=== PATIENT | female | born 1940 | race Hispanic/Latino ===

== ENCOUNTER 2017-12-28 19:01 | Emergency (ER) | payer OTHER ==
--- NOTE | 2017-12-28 21:13 | RAD REPORT ---
EXAM DESCRIPTION: RAD - Tib Fib Right - 12/28/2017 8:58 pm CLINICAL HISTORY: Left leg swelling. COMPARISON: None. FINDINGS: No fracture, dislocation or aggressive marrow lesion. Edematous changes are present throug hout the soft tissues of the leg.
[2017-12-28 21:24] LABS: Basophils % 1.3 % (0-1.3); Eosinophils % 9.1 % (0-4.4); Hematocrit 40.9 % (36.0-45.0); Lymphocytes % 37.9 % (15.3-44.8); MCH 29.1 pg (27.0-35.0); MCV 87.7 fL (80-100); Monocytes % 9.2 % (3.3-12.3); RBC Red Blood Cell Count 4.67 M/uL (3.86-4.86)
[2017-12-28 21:25] LABS: Absolute Lymphocytes (CBC) 3.4 K/uL (0.7-4.9); Absolute Monocytes 0.8 K/uL (0.1-1.3); Absolute Neutrophil 3.8 K/uL (1.8-8.0)
[2017-12-28 21:32] LABS: Potassium 4.6 mEq/L (3.6-5.0)
[2017-12-28 21:34] LABS: Albumin 4.7 g/dL (3.2-5.5); Bilirubin Total 0.4 mg/dL (0.3-1.2)
--- NOTE | 2017-12-28 21:36 | RAD REPORT ---
EXAM DESCRIPTION: VAS - Extremity Venous Uni Ltd - 12/28/2017 9:28 pm CLINICAL HISTORY: Leg swelling and edema. COMPARISON: None. FINDINGS: Right lower extremity venous system was interrogated with Doppler technique. Normal flow, compressibility and augmentation was noted. There is no DVT present. IMPRESSION: No evidence of right lower extremity deep venous thrombosis.
--- NOTE | 2017-12-28 21:44 | EDPHYS ---
Physician Documentation [facility] Name: Patricia Calhoun Age: 77 yrs Sex: Female : 1940 Arrival Date: 12/28/2017 Time: 19:02 Bed 2 Private MD: ED Physician Fermin Matthew HPI: 12/28 20:44 This 77 yrs old Female presents to ER via Ambulatory with complaints of Leg carmine Swelling. 20:44 The patient presents with decreased range of motion, pain. The complaints affect the carmine lateral aspect of right calf, right ankle, right calf, right Achilles, medial aspect of right calf, right flores and anterior aspect of right ankle. Context: Problem is a result from a previous injury: No. Onset: The symptoms/episode began/occurred 2 day(s) ago. Modifying factors: The symptoms are alleviated by remaining still. Associated signs and symptoms: The patient has no apparent associated signs or symptoms. Severity of symptoms: At their worst the symptoms were mild, moderate, in the emergency department the symptoms are unchanged. Historical: - Allergies: 21:57 PENICILLINS; tl2 - PMHx: 19:34 Diabetes - IDDM; High Cholesterol; Hypertension; Hypothyroidism; lk1 - PSHx: 19:34 None; lk1 - Immunization history:: Adult Immunizations up to date. - Social history:: Smoking status: Patient/guardian denies using tobacco. - Family history:: not pertinent. ROS: 20:44 Constitutional: Negative for fever, chills, and weight loss, Eyes: Negative for injury, carmine pain, redness, and discharge, ENT: Negative for injury, pain, and discharge, Neck: Negative for injury, pain, and swelling, Cardiovascular: Negative for chest pain, palpitations, and edema, Respiratory: Negative for shortness of breath, cough, wheezing, and pleuritic chest pain, Abdomen/GI: Negative for abdominal pain, nausea, vomiting, diarrhea, and constipation, Back: Negative for injury and pain, : Negative for injury, bleeding, discharge, and swelling, Skin: Negative for injury, rash, and discoloration, Neuro: Negative for headache, weakness, numbness, tingling, and seizure, Psych: Negative for depression, anxiety, suicide ideation, homicidal ideation, and hallucinations, Allergy/Immunology: Negative for hives, rash, and allergies, Endocrine: Negative for neck swelling, polydipsia, polyuria, polyphagia, and marked weight changes, Hematologic/Lymphatic: Negative for swollen nodes, abnormal bleeding, and unusual bruising. 20:44 MS/extremity: Positive for decreased range of motion, pain, swelling, of the right leg. Exam: 20:44 Constitutional: This is a well developed, well nourished patient who is awake, alert, carmine and in no acute distress. Head/Face: Normocephalic, atraumatic. Eyes: Pupils equal round and reactive to light, extra-ocular motions intact. Lids and lashes normal. Conjunctiva and sclera are non-icteric and not injected. Cornea within normal limits. Periorbital areas with no swelling, redness, or edema. ENT: Nares patent. No nasal discharge, no septal abnormalities noted. Tympanic membranes are normal and external auditory canals are clear. Oropharynx with no redness, swelling, or masses, exudates, or evidence of obstruction, uvula midline. Mucous membranes moist. Neck: Trachea midline, no thyromegaly or masses palpated, and no cervical lymphadenopathy. Supple, full range of motion without nuchal rigidity, or vertebral point tenderness. No Meningismus. Chest/axilla: Normal chest wall appearance and motion. Nontender with no deformity. No lesions are appreciated. Cardiovascular: Regular rate and rhythm with a normal S1 and S2. No gallops, murmurs, or rubs. Normal PMI, no JVD. No pulse deficits. Respiratory: Lungs have equal breath sounds bilaterally, clear to auscultation and percussion. No rales, rhonchi or wheezes noted. No increased work of breathing, no retractions or nasal flaring. Abdomen/GI: Soft, non-tender, with normal bowel sounds. No distension or tympany. No guarding or rebound. No evidence of tenderness throughout. Back: No spinal tenderness. No costovertebral tenderness. Full range of motion. Female : Normal external genitalia. Skin: Warm, dry with normal turgor. Normal color with no rashes, no lesions, and no evidence of cellulitis. Neuro: Awake and alert, GCS 15, oriented to person, place, time, and situation. Cranial nerves II-XII grossly intact. Motor strength 5/5 in all extremities. Sensory grossly intact. Cerebellar exam normal. Normal gait. Psych: Awake, alert, with orientation to person, place and time. Behavior, mood, and affect are within normal limits. 20:44 Musculoskeletal/extremity: ROM: full active range of motion, full passive range of motion, Circulation is intact in all extremities. Sensation intact. Compartment Syndrome exam of affected extremity: is normal. DVT Exam: no pain, no tenderness, negative Homans' sign noted on exam, no appreciated bluish discoloration, no erythema, no increased warmth, swelling. 21:41 Neck: ROM/movement: is normal, no acute changes, Meningeal signs: are not present, carmine Kernig's sign is negative, Brudzinski's sign is negative. Vital Signs: 19:35 BP 143 / 66; Pulse 69; Resp 16; Temp 98.0(TE); Pulse Ox 97% on R/A; Weight 91.17 kg lk1 (R); Height 5 ft. 1 in. (154.94 cm) (R); Pain 4/10; 21:37 BP 130 / 50; Pulse 68; Resp 17; Pulse Ox 99% ; tl1 19:35 Body Mass Index 37.98 (91.17 kg, 154.94 cm) lk1 MDM: 20:13 Patient medically screened. [facility] 20:49 Data reviewed: vital signs, nurses notes, radiologic studies, ultrasound. [facility] 12/28 20:43 Order name: CBC with Diff; Complete Time: 21:40 [facility] 12/28 20:43 Order name: Comprehensive Metabolic Panel; Complete Time: 21:40 [facility] 12/28 20:43 Order name: US Extremity Venous Unilateral Ltd; Complete Time: 21:40 [facility] 12/28 20:43 Order name: Tib Fib Right XRAY; Complete Time: 21:40 [facility] 12/28 20:43 Order name: PT-INR [facility] 12/28 20:43 Order name: Ptt, Activated [facility] 12/28 20:43 Order name: IV Saline Lock; Complete Time: 21:25 [facility] Administered Medications: No medications were administered Disposition: 12/28/17 21:43 Discharged to Home. Impression: Edema, unspecified, Pain in right lower leg, Unspecified kidney failure. - Condition is Stable. - Discharge Instructions: Type 1 Diabetes Mellitus, Adult, Edema, Musculoskeletal Pain, Edema, [id number], Kidney Failure, Ajpz-ma-Yily. - Prescriptions for Tylenol- Codeine #3 300-30 mg Oral Tablet - take 1 tablet by ORAL route every 4 hours As needed; 24 tablet. - Medication Reconciliation Form, Thank You Letter, Antibiotic Education, Prescription Opioid Use form. - Follow up: Private Physician; When: 2 - 3 days; Reason: Recheck today's complaints, Continuance of care, Re-evaluation by your physician. Follow up: Padma Talamantes MD; When: 2 - 3 days; Reason: Recheck today's complaints, Re-evaluation by your physician. - Problem is new. - Symptoms have improved. Signatures: Dispatcher [employer] EDMS Fermin Matthew MD MD cha Kluge, Leah RN RN lk1 Huyen Omalley RN RN tl2 Corrections: (The following items were deleted from the chart) 21:57 19:34 Allergies: PENICILLINS; lk1 tl2 21:58 21:43 12/28/2017 21:43 Discharged to Home. Impression: Edema, unspecified; Pain in tl2 right lower leg; Unspecified kidney failure. Condition is Stable. Discharge Instructions: Edema, Musculoskeletal Pain, Edema, Pika-ph-Klef. Prescriptions for Tylenol-Codeine #3 300-30 mg Oral Tablet - take 1 tablet by ORAL route every 4 hours As needed; 24 tablet. and Forms are Medication Reconciliation Form, Thank You Letter, Antibiotic Education, Prescription Opioid Use. Follow up: Private Physician; When: 2 - 3 days; Reason: Recheck today's complaints, Continuance of care, Re-evaluation by your physician. Follow up: Padma Talamantes; When: 2 - 3 days; Reason: Recheck today's complaints, Re-evaluation by your physician. Problem is new. Symptoms have improved. carmine
--- NOTE | 2017-12-28 21:44 | ER ---
Nurse's Notes [facility] Name: Patricia Calhoun Age: 77 yrs Sex: Female : 1940 Arrival Date: 12/28/2017 Time: 19:02 Bed 2 Private MD: Diagnosis: Edema, unspecified;Pain in right lower leg;Unspecified kidney failure Presentation: 12/28 19:33 Presenting complaint: Child states: "Her legs have been swelling since the beginning of lk1 this week.". Transition of care: patient was not received from another setting of care. Onset of symptoms was December 24, 2017. Initial Sepsis Screen: Does the patient meet any 2 criteria? No. Patient's initial sepsis screen is negative. Does the patient have a suspected source of infection? No. Patient's initial sepsis screen is negative. Care prior to arrival: None. 19:33 Method Of Arrival: Ambulatory lk1 19:33 Acuity: ONEAL 3 lk1 Triage Assessment: 19:34 General: Appears in no apparent distress. Behavior is calm, cooperative, appropriate lk1 for age. Pain: Complains of pain in lateral aspect of right calf, posterior aspect of right knee and right calf Pain currently is 4 out of 10 on a pain scale. Historical: - Allergies: 21:57 PENICILLINS; tl2 - PMHx: 19:34 Diabetes - IDDM; High Cholesterol; Hypertension; Hypothyroidism; lk1 - PSHx: 19:34 None; lk1 - Immunization history:: Adult Immunizations up to date. - Social history:: Smoking status: Patient/guardian denies using tobacco. - Family history:: not pertinent. Screenin:30 Abuse screen: Denies threats or abuse. Denies injuries from another. Nutritional tl1 screening: No deficits noted. Tuberculosis screening: No symptoms or risk factors identified. Fall Risk IV access (20 points). Assessment: 21:31 General: Appears in no apparent distress. Behavior is calm, cooperative, appropriate tl1 for age. Pain: Complains of pain in right calf Pain currently is 4 out of 10 on a pain scale. Quality of pain is described as aching. Neuro: Level of Consciousness is awake, alert, obeys commands, Oriented to person, place, time, situation. Cardiovascular: Denies chest pain, Capillary refill < 3 seconds Patient's skin is warm and dry. Respiratory: Airway is patent Trachea midline Respiratory effort is even, unlabored, Breath sounds are clear bilaterally. GI: Abdomen is non-distended, Bowel sounds present X 4 quads. Abd is soft and non tender X 4 quads. : No signs and/or symptoms were reported regarding the genitourinary system. Musculoskeletal: Swelling present in right calf Tenderness present in right calf Reports pain in right calf. 21:56 Reassessment: No changes from previously documented assessment. Patient and/or family tl2 updated on plan of care and expected duration. Pain level reassessed. Patient is alert, oriented x 3, equal unlabored respirations, skin warm/dry/pink. Vital Signs: 19:35 BP 143 / 66; Pulse 69; Resp 16; Temp 98.0(TE); Pulse Ox 97% on R/A; Weight 91.17 kg lk1 (R); Height 5 ft. 1 in. (154.94 cm) (R); Pain 4/10; 21:37 BP 130 / 50; Pulse 68; Resp 17; Pulse Ox 99% ; tl1 19:35 Body Mass Index 37.98 (91.17 kg, 154.94 cm) lk1 ED Course: 19:02 Patient arrived in ED. as 19:34 Triage completed. lk1 19:37 Arm band placed on right wrist. lk1 19:37 Patient has correct armband on for positive identification. Placed in gown. Bed in low tl2 position. Call light in reach. Side rails up X 1. 20:13 Fermin Matthew MD is Attending Physician. [facility] 20:58 X-ray completed. Portable x-ray completed in exam room. Patient tolerated procedure bb2 well. 20:58 Tib Fib Right XRAY In Process Unspecified. EDMS 21:15 Ultrasound completed. Patient tolerated well. sg3 21:25 Danae Subramanian, ANITA is Primary Nurse. tl1 21:28 US Extremity Venous Unilateral Ltd In Process Unspecified. EDMS 21:30 No provider procedures requiring assistance completed. tl1 21:43 Padma Talamantes MD is Referral Physician. carmine 21:57 IV discontinued, intact, bleeding controlled, No redness/swelling at site. Pressure tl2 dressing applied. Administered Medications: No medications were administered Outcome: 21:43 Discharge ordered by . carmine 21:56 Discharged to home ambulatory, with family. tl2 21:56 Condition: good 21:56 Discharge instructions given to patient, family, Instructed on discharge instructions, follow up and referral plans. Demonstrated understanding of instructions, follow-up care, medications, Prescriptions given X 1. 21:58 Patient left the ED. tl2 Signatures: Dispatcher [employer] EDFermin Vega MD MD cha Martinez, Amelia as Lasagna, Tonya, RN RN tl1 Gabriela Davey RN RN lk1 Huyen Omalley RN RN tl2 Mya Jane 3 Malena Childs bb2 Corrections: (The following items were deleted from the chart) 21:57 19:34 Allergies: PENICILLINS; lk1 tl2
[2017-12-28 21:45] LABS: Protime INR 0.91
[2017-12-28 22:09] VITALS: TEMP 98
[2017-12-28 22:10] VITALS: BP 130/50; O2SAT 99
== END 2017-12-28 21:58 | disposition home or self-care (01) ==
LOC: ER 19:01
DX: M79.661 Pain in right lower leg (principal); N19 Unspecified kidney failure; R60.9 Edema, unspecified; Z88.0 Allergy status to penicillin
CPT/HCPCS: 36415; 80053; 85025; 85610; 85730; 93971; 99283

== ENCOUNTER 2019-07-24 19:18 | Emergency (ER) | payer OTHER ==
[2019-07-24 21:14] LABS: Basophils % 1.2 % (0-1.3); Hematocrit 40.7 % (36.0-45.0); Lymphocytes % 38.8 % (15.3-44.8); MPV 8.7 fL (7.6-11.3); RBC Red Blood Cell Count 4.54 M/uL (3.86-4.86)
[2019-07-24 21:15] LABS: Protime INR 0.97
[2019-07-24 21:32] LABS: BUN Blood Urea Nitrogen 30 mg/dL (7-18); Bicarbonate 27 mmol/L (21-32); Glucose Level 134 mg/dL (74-106); NT PRO-BNP 144 pg/mL (<450); Potassium 4.5 mmol/L (3.5-5.1); Sodium Level 140 mmol/L (136-145); Troponin (Emerg Dept Use Only) < 0.02 ng/mL (0.0-0.045)
--- NOTE | 2019-07-24 22:11 | RAD REPORT ---
EXAM DESCRIPTION: Nikole Single View07/24/2019 9:03 pm CLINICAL HISTORY: Chest pain COMPARISON: 2017 FINDINGS: The lungs appear clear of acute infiltrate. The heart is normal size IMPRESSION: No acute abnormalities displayed
--- NOTE | 2019-07-24 23:09 | ER ---
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 She checked her blood aj1 pressure at home and it was 180/75. Patient reports that she has had a headache every day for over a week now. Transition of care: patient was not received from another setting of care. Onset of symptoms was 2018. Risk Assessment: Do you want to hurt yourself or someone else? Patient reports no desire to harm self or others. Initial Sepsis Screen: Does the patient meet any 2 criteria? Does the patient have a suspected source of infection? No. Patient's initial sepsis screen is negative. Care prior to arrival: None. 19:57 Method Of Arrival: Ambulatory aj1 19:57 Acuity: ONEAL 3 aj1 Triage Assessment: 20:04 General: Appears in no apparent distress. comfortable, Behavior is calm, cooperative, aj1 appropriate for age. Pain: Complains of pain in forehead Pain currently is 7 out of 10 on a pain scale. Neuro: Level of Consciousness is awake, alert, obeys commands, Oriented to place, time, situation. Cardiovascular: Patient's skin is warm and dry. Respiratory: Airway is patent Respiratory effort is even, unlabored, Respiratory pattern is regular, symmetrical. Historical: - Allergies: 20:04 PENICILLINS; aj1 - Home Meds: 20:04 carvedilol 6.25 mg Oral tab 1 tab 2 times per day [Active]; glipizide 5 mg Oral tab 1 aj1 tab 2 times per day [Active]; levothyroxine 50 mcg tab 1 tab once daily [Active]; losartan 50 mg oral tab 1 tab once daily [Active]; lovastatin 20 mg Oral tab 1 tab once daily [Active]; pantoprazole 40 mg oral TbEC 1 tab once daily [Active]; metformin 850 mg Oral tab 1 tab daily [Active]; amlodipine 10 mg oral tab 1 tab once daily [Active]; Lantus 100 unit/mL Sub-Q soln 30 unit daily [Active]; - PMHx: 20:04 Diabetes - IDDM; High Cholesterol; Hypertension; Hypothyroidism; aj1 - Immunization history:: Flu vaccine is up to date. - Social history:: Smoking status: Patient/guardian denies using tobacco. - Ebola Screening: : Patient denies travel to an Ebola-affected area in the 21 days before illness onset. Screenin:13 Abuse screen: Denies threats or abuse. Denies injuries from another. Nutritional mg2 screening: No deficits noted. Tuberculosis screening: No symptoms or risk factors identified. Fall Risk IV access (20 points). Assessment: 21:15 General: Appears in no apparent distress. comfortable, Behavior is calm, cooperative. mg2 Pain: Denies pain. Neuro: Level of Consciousness is awake, alert, obeys commands, Oriented to person, place, time, situation. Cardiovascular: Capillary refill < 3 seconds Patient's skin is warm and dry. Respiratory: Airway is patent Respiratory effort is even, unlabored, Respiratory pattern is regular, symmetrical. GI: No deficits noted. : No signs and/or symptoms were reported regarding the genitourinary system. EENT: No signs and/or symptoms were reported regarding the EENT system. Derm: Skin is intact, is healthy with good turgor, Skin is pink, warm \T\ dry. normal. Musculoskeletal: Circulation, motion, and sensation intact. Capillary refill < 3 seconds. 22:15 Reassessment: Patient appears in no apparent distress at this time. Patient and/or mg2 family updated on plan of care and expected duration. Pain level reassessed. Patient is alert, oriented x 3, equal unlabored respirations, skin warm/dry/pink. 23:19 Reassessment: blood pressure improved. no complaints noted. mg2 Vital Signs: 20:04 BP 155 / 69; Pulse 70; Resp 18; Temp 98.4; Pulse Ox 100% on R/A; Height 5 ft. 1 in. aj1 (154.94 cm) (R); Pain 7/10; 22:20 BP 130 / 55; Pulse 63; Resp 18; Pulse Ox 97% on R/A; Pain 0/10; mg2 23:19 BP 134 / 55; Pulse 68; Resp 18; Temp 98; Pulse Ox 100% on R/A; Pain 0/10; mg2 ED Course: 19:34 Patient arrived in ED. cf2 20:00 Triage completed. aj1 20:04 Arm band placed on Patient placed in an exam room. aj1 20:12 Chaitanya Stout FNP-C is [facility]. la1 20:12 Noé Quintanilla MD is Attending Physician. la1 20:29 Josef Donaldson, RN is Primary Nurse. mg2 21:02 XRAY Chest (1 view) In Process Unspecified. EDMS 21:14 No provider procedures requiring assistance completed. Inserted saline lock: 20 gauge mg2 in left antecubital area, using aseptic technique. Blood collected. 21:19 Patient has correct armband on for positive identification. Pulse ox on. NIBP on. Door mg2 closed. Warm blanket given. 23:19 IV discontinued, intact, bleeding controlled, No redness/swelling at site. Pressure mg2 dressing applied. Administered Medications: No medications were administered Outcome: 23:08 Discharge ordered by . la1 23:20 Discharged to home ambulatory, with family. mg2 23:20 Condition: stable 23:20 Discharge instructions given to patient, family, Instructed on discharge instructions, follow up and referral plans. Demonstrated understanding of instructions, follow-up care. 23:20 Patient left the ED. mg2 Signatures: Dispatcher [employer] EDMS Leesa Mitchell RN RN aj1 Chaitanya Stout FNP-C FNP-[facility]1 Josef Donaldson, ANITA RN [facility] [place] Po[place] 2
--- NOTE | 2019-07-24 23:09 | EDPHYS ---
Physician Documentation [facility] Name: Patricia Calhoun Age: 79 yrs Sex: Female : 1940 Arrival Date: 07/24/2019 Time: 19:34 Bed 23 Private MD: ED Physician Noé Quintanilla HPI: 07/24 20:50 This 79 yrs old Female presents to ER via Ambulatory with complaints of High la1 Blood Pressure. 20:50 The patient has elevated blood pressure and discovered this at home. Onset: The la1 symptoms/episode began/occurred 1 week(s) ago. Modifying factors: The symptoms are aggravated by The symptoms are alleviated by prescription meds. Associated signs and symptoms: Pertinent negatives: chest pain, dizziness, dyspnea, headache, lightheadedness, nausea, visual changes, vomiting, weakness. Severity of symptoms: At its worst the blood pressure was moderate, 155 mm Hg. The patient has experienced similar episodes in the past. pt reports BP has been running high at home in the 180s to 200s systolic, reports she occasionally feels like her throat is being choked and has a occasional CAMPOS, reports that she also hears ringing in her ears when her BP is up, currently denies CP. Historical: - Allergies: 20:04 PENICILLINS; aj1 - Home Meds: 20:04 carvedilol 6.25 mg Oral tab 1 tab 2 times per day [Active]; glipizide 5 mg Oral tab 1 aj1 tab 2 times per day [Active]; levothyroxine 50 mcg tab 1 tab once daily [Active]; losartan 50 mg oral tab 1 tab once daily [Active]; lovastatin 20 mg Oral tab 1 tab once daily [Active]; pantoprazole 40 mg oral TbEC 1 tab once daily [Active]; metformin 850 mg Oral tab 1 tab daily [Active]; amlodipine 10 mg oral tab 1 tab once daily [Active]; Lantus 100 unit/mL Sub-Q soln 30 unit daily [Active]; - PMHx: 20:04 Diabetes - IDDM; High Cholesterol; Hypertension; Hypothyroidism; aj1 - Immunization history:: Flu vaccine is up to date. - Social history:: Smoking status: Patient/guardian denies using tobacco. - Ebola Screening: : Patient denies travel to an Ebola-affected area in the 21 days before illness onset. ROS: 20:52 Constitutional: Negative for fever, chills, and weight loss, Eyes: Negative for injury, la1 pain, redness, and discharge, ENT: Negative for injury, pain, and discharge, Neck: Negative for injury, pain, and swelling, Cardiovascular: Negative for chest pain, palpitations, and edema, Respiratory: Negative for shortness of breath, cough, wheezing, and pleuritic chest pain, Abdomen/GI: Negative for abdominal pain, nausea, vomiting, diarrhea, and constipation, Back: Negative for injury and pain, MS/Extremity: Negative for injury and deformity, Neuro: Negative for headache, weakness, numbness, tingling, and seizure, + for tinnitus Exam: 20:52 Constitutional: This is a well developed, well nourished patient who is awake, alert, la1 and in no acute distress. Eyes: Pupils equal round and reactive to light, extra-ocular motions intact. Periorbital areas with no swelling, redness, or edema. ENT: Mucous membranes moist. Neck: . No Meningismus. Chest/axilla: Normal chest wall appearance and motion. Nontender with no deformity. No lesions are appreciated. Cardiovascular: Regular rate and rhythm with a normal S1 and S2. No gallops, murmurs, or rubs. Normal PMI, no JVD. No pulse deficits. Respiratory: Lungs have equal breath sounds bilaterally, clear to auscultation No rales, rhonchi or wheezes noted. No increased work of breathing, no retractions or nasal flaring. Abdomen/GI: Soft, non-tender, with normal bowel sounds. No distension or tympany. No guarding or rebound. No evidence of tenderness throughout. Vital Signs: 20:04 BP 155 / 69; Pulse 70; Resp 18; Temp 98.4; Pulse Ox 100% on R/A; Height 5 ft. 1 in. aj1 (154.94 cm) (R); Pain 7/10; 22:20 BP 130 / 55; Pulse 63; Resp 18; Pulse Ox 97% on R/A; Pain 0/10; mg2 23:19 BP 134 / 55; Pulse 68; Resp 18; Temp 98; Pulse Ox 100% on R/A; Pain 0/10; mg2 MDM: 20:12 Patient medically screened. la1 23:39 Data reviewed: vital signs, nurses notes, lab test result(s), EKG, radiologic studies, la1 I have discussed the patient's presentation/case with the attending Emergency Department Physician; and as a result, I will discharge patient. Data interpreted: Pulse oximetry: on room air is 100 %. Interpretation: normal. Counseling: I had a detailed discussion with the patient and/or guardian regarding: the historical points, exam findings, and any diagnostic results supporting the discharge/admit diagnosis, the presence of at least one elevated blood pressure reading (>120/80) during this emergency department visit, lab results, radiology results, the need for outpatient follow up, a family practitioner. ED course: pt denies severe CAMPOS, chest pain, dizziness, BP is lowered, states she is feeling better, will FU with PCP with list of recent BPs at home return precautions given. 07/24 20:49 Order name: Basic Metabolic Panel; Complete Time: 21:41 07/24 20:49 Order name: CBC with Diff; Complete Time: 21:41 07/24 20:49 Order name: NT PRO-BNP; Complete Time: 21:41 07/24 20:49 Order name: PT-INR; Complete Time: 21:41 07/24 20:49 Order name: Troponin (emerg Dept Use Only); Complete Time: 21:41 07/24 20:49 Order name: XRAY Chest (1 view) 07/24 20:49 Order name: EKG; Complete Time: 20:50 07/24 20:49 Order name: Cardiac monitoring; Complete Time: 21:20 07/24 20:49 Order name: EKG - Nurse/Tech; Complete Time: 21:20 07/24 20:49 Order name: IV Saline Lock; Complete Time: 21:20 07/24 20:49 Order name: Labs collected and sent; Complete Time: 21:20 07/24 20:49 Order name: O2 Per Protocol; Complete Time: 21:20 07/24 20:49 Order name: O2 Sat Monitoring; Complete Time: 21:20 la1 Administered Medications: No medications were administered Disposition: 07/25 04:50 Co-signature as Attending Physician, Noé Quintanilla MD I agree with the assessment and tw4 plan of care. Disposition: 07/24/19 23:08 Discharged to Home. Impression: Essential (primary) hypertension. - Condition is Stable. - Discharge Instructions: Hypertension, How to Take Your Blood Pressure, [id number], DASH Eating Plan, Managing Your Hypertension. - Medication Reconciliation Form, Thank You Letter form. - Follow up: Private Physician; When: 2 - 3 days; Reason: Recheck today's complaints, Re-evaluation by your physician. - Problem is an ongoing problem. - Symptoms have improved. Signatures: Dispatcher [employer] EDLeesa Castillo, RN RN aj1 Chaitanya Stout, CONTROL ROOM OPERATOR-C CONTROL ROOM OPERATOR-Cla1 Noé Quintanilla MD MD tw4 Josef Donaldson RN RN mg2 Corrections: (The following items were deleted from the chart) 07/24 23:20 23:08 07/24/2019 23:08 Discharged to Home. Impression: Essential (primary) mg2 hypertension. Condition is Stable. Forms are Medication Reconciliation Form, Thank You Letter, Antibiotic Education, Prescription Opioid Use. Follow up: Private Physician; When: 2 - 3 days; Reason: Recheck today's complaints, Re-evaluation by your physician. Problem is an ongoing problem. Symptoms have improved. la1
[2019-07-25 02:06] VITALS: BP 134/55; TEMP 98; O2SAT 100
--- NOTE | 2019-07-25 07:07 | EKG ---
Test Date: 2019-07-24 Test Time: 20:53:24 Head Machinist: MEASUREMENT RESULTS: Intervals: Rate: 65 SC: 170 QRSD: 72 QT: 420 QTc: 436 [place]: P: 49 SC: 170 QRS: -31 T: 31 INTERPRETIVE STATEMENTS: Normal sinus rhythm Left axis deviation Anterior infarct, age undetermined Abnormal ECG Compared to ECG 01/11/2015 06:58:37 Left-axis deviation now present Myocardial infarct finding still present Electronically Signed On 07-25-19 07:06:47 ENVIRONMENTAL EMERGENCIES PLANNER by Rich Jaffe
== END 2019-07-24 23:20 | disposition home or self-care (01) ==
LOC: ER 19:18
DX: I10 Essential (primary) hypertension (principal); Z88.0 Allergy status to penicillin; E03.9 Hypothyroidism, unspecified; E11.9 Type 2 diabetes mellitus without complications; E78.00 Pure hypercholesterolemia, unspecified
CPT/HCPCS: 36415; 71045; 80048; 83880; 84484; 85025; 85610; 93005; 99284